=== PATIENT | female | born 1985 | race American Indian/Alaskan Native ===

== ENCOUNTER 2017-10-11 12:56 | Emergency (ER) | payer SELFPAY ==
[2017-10-11] MEDS ORDERED: MORPHINE IV ONE (14:34)
[2017-10-11] MEDS ORDERED: ZOFRAN IV ONE (14:34)
--- NOTE | 2017-10-11 14:37 | Emergency Department Report ---
Blank Doc - Documentation Documentation: 32-year-old female with no past medical surgical history presents to Hospital with complaints of joint without pain 1 week. Pain is severe, rated 10/10 intensity, constant, worse with palpation. Pt in distress. IVF, morphine, zofran ordered labs pending ct a/p IV contrast ordered to be done if test neg. midlevel to follow
[2017-10-11] MEDS ORDERED: NACL 0.9% 1000 ML 1,000 ML IV ONE (14:38)
[2017-10-11] MEDS ORDERED: PEPCID IV ONE (14:38)
[2017-10-11 14:39] VITALS: BP 104/73
--- NOTE | 2017-10-11 15:23 | Emergency Department Report ---
ED Abdominal Pain HPI - General Chief Complaint: Abdominal Pain Stated Complaint: STOMACH PAIN Time Seen by Provider: 10/11/17 14:30 Source: patient Mode of arrival: Ambulatory Limitations: No Limitations - History of Present Illness Initial Comments: This is a 32-year-old female nontoxic, well nourished in appearance, no acute signs of distress presents to the ED with c/o of intermittent abdominal pain x1 week. Patient describes abdominal as cramping and aching diffuse with more to the right upper abdominal region. Patient also stated has associated nausea with vomiting. Patient stated last vomiting occurred last night with food contant. Patient denies any chest pain, shortness of breathe, fever, chills, headache, numbness, tingling, back pain. Patient denies any urinary symptoms. Denies any drug allergies. PMH includes DVT, PE, and HTN. MD Complaint: abdominal pain -: week(s) (1) Location: diffuse Radiation: none Migration to: no migration Severity: mild Severity scale (0 -10): 10 Quality: cramping, aching Consistency: intermittent Improves With: nothing Worsens With: nothing Associated Symptoms: nausea, vomiting. denies: diarrhea, fever, chills, constipation, dysuria, hematemesis, hematochezia, melena, hematuria, anorexia, syncope - Related Data Previous Rx's Medication Instructions Recorded Last Taken Type Hydrocortisone 1% [Hydrocortisone 1 applicatio TP TID #1 tube 07/03/14 Unknown Rx 1% CREAM] Ibuprofen [Motrin 800 MG tab] 800 mg PO TID PRN #21 tablet 07/03/14 Unknown Rx guaiFENesin [Adult Tussin Chest 5 ml PO TID #118 ml 07/03/14 Unknown Rx Congestion] Amoxicillin [Amoxicillin TAB] 875 mg PO BID #20 tablet 08/29/14 Unknown Rx Ibuprofen [Motrin 600 MG tab] 600 mg PO Q8H #20 bottle NS 08/29/14 Unknown Rx Ibuprofen [Motrin] 600 mg PO Q8H PRN #30 tablet 10/11/17 Unknown Rx Ondansetron [Zofran Odt] 4 mg PO Q8HR #20 tab.rapdis 10/11/17 Unknown Rx Allergies Allergy/AdvReac Type Severity Reaction Status Date / Time apple Allergy Unknown Verified 08/29/14 00:57 ED Review of Systems ROS: Stated complaint: STOMACH PAIN Other details as noted in HPI Constitutional: denies: chills, fever Eyes: denies: eye pain, eye discharge, vision change ENT: denies: ear pain, throat pain Respiratory: denies: cough, shortness of breath, wheezing Cardiovascular: denies: chest pain, palpitations Endocrine: no symptoms reported Gastrointestinal: abdominal pain, nausea, vomiting. denies: diarrhea, constipation Genitourinary: denies: urgency, dysuria, discharge Musculoskeletal: denies: back pain, joint swelling, arthralgia Skin: denies: rash, lesions Neurological: denies: headache, weakness, paresthesias Psychiatric: denies: anxiety, depression Hematological/Lymphatic: denies: easy bleeding, easy bruising ED Past Medical Hx - Past Medical History Hx Hypertension: Yes Hx CVA: No Hx Congestive Heart Failure: No Hx Deep Vein Thrombosis: Yes Hx Pulmonary Embolism: No Hx Renal Disease: Yes Hx Sickle Cell Disease: No Hx Arthritis: No Hx Seizures: No - Surgical History Hx Open Heart Surgery: No Hx Internal Defibrillator: No Hx Cholecystectomy: No - Social History Smoking Status: Current Every Day Smoker Substance Use Type: Alcohol, Marijuana - Medications Home Medications: Home Medications Medication Instructions Recorded Confirmed Last Taken Type Hydrocortisone 1% [Hydrocortisone 1 applicatio TP TID #1 tube 07/03/14 Unknown Rx 1% CREAM] Ibuprofen [Motrin 800 MG tab] 800 mg PO TID PRN #21 tablet 07/03/14 Unknown Rx guaiFENesin [Adult Tussin Chest 5 ml PO TID #118 ml 07/03/14 Unknown Rx Congestion] Amoxicillin [Amoxicillin TAB] 875 mg PO BID #20 tablet 08/29/14 Unknown Rx Ibuprofen [Motrin 600 MG tab] 600 mg PO Q8H #20 bottle NS 08/29/14 Unknown Rx Ibuprofen [Motrin] 600 mg PO Q8H PRN #30 tablet 10/11/17 Unknown Rx Ondansetron [Zofran Odt] 4 mg PO Q8HR #20 tab.rapdis 10/11/17 Unknown Rx ED Physical Exam - General Limitations: No Limitations General appearance: alert, in no apparent distress - Head Head exam: Present: atraumatic, normocephalic - Eye Eye exam: Present: normal appearance Pupils: Present: normal accommodation - ENT ENT exam: Present: normal exam, mucous membranes moist - Neck Neck exam: Present: normal inspection, full ROM. Absent: tenderness, meningismus, lymphadenopathy - Respiratory Respiratory exam: Present: normal lung sounds bilaterally. Absent: respiratory distress, wheezes, rales, rhonchi, stridor, chest wall tenderness, accessory muscle use, decreased breath sounds, prolonged expiratory - Cardiovascular Cardiovascular Exam: Present: regular rate, normal rhythm, normal heart sounds. Absent: bradycardia, tachycardia, irregular rhythm, systolic murmur, diastolic murmur, rubs, gallop - GI/Abdominal GI/Abdominal exam: Present: soft, tenderness (diffuse), normal bowel sounds. Absent: distended, guarding, rebound, rigid, diminished bowel sounds - Expanded GI/Abdominal Exam Expanded GI/Abdominal exam: Absent: psoas sign, obturator sign, heel tap sign, Cruz's sign, Rovsing's sign, tenderness at Mcburney's Point, ascites - Rectal Rectal exam: Present: deferred - Extremities Exam Extremities exam: Present: normal inspection, full ROM, normal capillary refill - Back Exam Back exam: Present: normal inspection, full ROM. Absent: tenderness, CVA tenderness (R), CVA tenderness (L), paraspinal tenderness, vertebral tenderness - Neurological Exam Neurological exam: Present: alert, oriented X3, normal gait - Psychiatric Psychiatric exam: Present: normal affect, normal mood - Skin Skin exam: Present: warm, dry, intact, normal color. Absent: rash ED Course Vital Signs 10/11/17 10/11/17 14:38 14:55 Temperature 99.1 F Pulse Rate 81 Respiratory 20 Rate Blood Pressure 104/73 [Left] O2 Sat by Pulse 98 100 Oximetry - Reevaluation(s) Reevaluation #1: 10/11/17 15:24 Patient is speaking in full sentences with no signs of distress noted. Reevaluation #2: 10/11/17 16:04 Patient is resting comfortably and stated that abdominal pain is subsiding and resolving. - Consultations Consultation #1: 10/11/17 15:24 Patient has been consulted with Dr. Luong about patient history, physical exam, and labs and examined and screened patient and agrees to ED plan of care. ED Medical Decision Making - Lab Data Result diagrams: 10/11/17 14:55 10/11/17 14:55 - Medical Decision Making This is a 32-year-old female that presents with abdominal pain, nausea/vomiting and hypokalemia. Patient stable was examined by me and Dr. Luong. There is slight abdominal tenderness. No rebound tenderness. Labs obtained. CT abdomen /pelvis with contrast obtained and dictated by the radiologist. Patient received 1L of normal saline and zofran which patient stated symptoms has resolved and subsided. A by mouth challenge of apple juice had been obtained and patient tolerated well with no nausea vomiting. Patient discharged with Zofran. Patient was instructed to increase hydration. Patient was referred to Follow-up with a primary care doctor in 3-5 days or if symptoms worsen and continue return to emergency room as soon as possible. At time of discharge, the patient does not seem toxic or ill in appearance. No acute signs of distress noted. Patient agrees to discharge treatment plan of care. No further questions noted by the patient. Critical care attestation.: If time is entered above; I have spent that time in minutes in the direct care of this critically ill patient, excluding procedure time. ED Disposition Clinical Impression: Right ovarian cyst Abdominal pain Qualifiers: Abdominal location: generalized Qualified Code(s): R10.84 - Generalized abdominal pain Nausea & vomiting Qualifiers: Vomiting type: unspecified Vomiting Intractability: non-intractable Qualified Code(s): R11.2 - Nausea with vomiting, unspecified Disposition: DC-01 TO HOME OR SELFCARE Is pt being admited?: No Does the pt Need Aspirin: No Condition: Stable Instructions: Ibuprofen (By mouth), Ondansetron (By mouth), Acute Abdominal Pain (ED), Abdominal Pain (ED) Additional Instructions: Follow-up with a primary careGYN doctor in 3-5 days or if symptoms worsen and continue return to emergency room as soon as possible. Prescriptions: Ibuprofen [Motrin] 600 mg PO Q8H PRN #30 tablet PRN Reason: Pain Ondansetron [Zofran Odt] 4 mg PO Q8HR #20 tab.rapdis Referrals: PRIMARY CARE, [Primary Care Provider] - 3-5 Days YURI LANG MD [Staff Physician] - 3-5 Days [facility] [Outside] - 3-5 Days [facility] [Outside] - 3-5 Days LATOYA MERCER MD [Staff Physician] - 3-5 Days Forms: Work/School Release Form(ED)
[2017-10-11 15:28] LABS: Basophils % (Auto) 0.2 % (0.0-1.8); Eosinophils % (Auto) 0.1 % (0.0-4.3); Hematocrit 34.9 % (30.3-42.9); Lymphocytes # (Auto) 1.1 K/mm3 (1.2-5.4); Lymphocytes % (Auto) 10.8 % (13.4-35.0); Mean Corpuscular HGB Conc 35 % (30-34); Mean Corpuscular Hemoglobin 29 pg (28-32); Mean Corpuscular Volume 84 fl (79-97); Monocytes # (Auto) 0.8 K/mm3 (0.0-0.8); Monocytes % (Auto) 7.4 % (0.0-7.3); Platelet Count 376 K/mm3 (140-440); Red Blood Count 4.16 M/mm3 (3.65-5.03); Red Cell Distribution Width 12.6 % (13.2-15.2)
[2017-10-11 15:52] LABS: Alanine Aminotransferase 9 units/L (7-56); Albumin 3.7 g/dL (3.9-5); BUN/Creatinine Ratio 15; Blood Urea Nitrogen 6 mg/dL (7-17); Calcium 8.9 mg/dL (8.4-10.2); Hemolysis Index 5; Lipase 15 units/L (13-60)
[2017-10-11] MEDS ORDERED: K-DUR PO ONE (15:57)
--- NOTE | 2017-10-11 17:05 | Cat Scan Report ---
FINAL REPORT EXAM: CT ABDOMEN PELVIS W CON HISTORY: abd pain TECHNIQUE: Standard enhanced CT of the abdomen and pelvis. Coronal and sagittal reconstruction was also performed. Delayed imaging through the kidneys and bladder was obtained. Contrast: Intravenous contrast was given. PRIORS: None. FINDINGS: Within the abdomen, the liver demonstrates focal fatty deposition along the anterior falciform ligament. The spleen, pancreas, gallbladder, adrenal glands, and kidneys are unremarkable. No evidence for retroperitoneal or pelvic lymphadenopathy is seen. The bowel loops have normal caliber. No soft tissue mass, fluid collection, inflammatory change, or free air is seen within the abdomen or pelvis. The appendix is normal. Within the pelvis, the bladder is unremarkable. The uterus is normal. There is a large cystic focus in the right side of the pelvis measuring 6.9 x 4.6 x 5.5 cm (axial image 128, series 2, sagittal image 91). This closely approximates the uterus and is likely ovarian in etiology. No evidence for soft tissue mass or lymphadenopathy is seen in the pelvis. Images through the upper abdomen include the lung bases which are expanded and clear. Bony structures show no focal abnormalities and are intact. IMPRESSION: 1. no acute intra-abdominal process noted. 2. Large cystic focus in the right pelvis, probably related to the right ovary.
[2017-10-11 18:02] LABS: Bilirubin,Urine NEG (Negative); Blood,Urine MOD (Negative); Color,Urine Yellow (Yellow); Mucus,Urine FEW /HPF; Protein,Urine <15 mg/dL mg/dL (Negative); Urobilinogen,Urine < 2.0 mg/dL (<2.0)
== END 2017-10-11 18:34 | disposition home or self-care (01) ==
LOC: ED 12:56
DX: N83.201 Unspecified ovarian cyst, right side (principal); I10 Essential (primary) hypertension; F17.200 Nicotine dependence, unspecified, uncomplicated; F12.10 Cannabis abuse, uncomplicated; Z79.899 Other long term (current) drug therapy; Z91.018 Allergy to other foods; Z86.718 Personal history of other venous thrombosis and embolism
CPT/HCPCS: 36415; 74177; 80053; 81001; 83690; 84702; 85025; 96361; 96374; 96375; 99284; J2270; J2405; J7030; Q9967

== ENCOUNTER 2019-03-08 18:11 | Emergency (ER) | payer SELFPAY ==
--- NOTE | 2019-03-08 18:31 | Emergency Department Report ---
Blank Doc - Documentation Documentation: 34-year-old female that presents with chest pain and SOB. Stated that symptoms started after being told that being cheated on with AIDs female. This initial assessment/diagnostic orders/clinical plan/treatment(s) is/are subject to change based on patient's health status, clinical progression and re- assessment by fellow clinical providers in the ED. Further treatment and workup at subsequent clinical providers discretion. Patient/guardians urged not to elope from the ED as their condition may be serious if not clinically assessed and managed. Initial orders include: 1- Patient sent to [facility] for further evaluation and treatment 2- EKG 3- CXR
[2019-03-08 19:35] LABS: HCG Qualitative,Urine Negative (Negative)
[2019-03-08 19:36] LABS: Bacteria,Urine 1+ /HPF (Negative); Bilirubin,Urine NEG (Negative); Blood,Urine NEG (Negative); Color,Urine Colorless (Yellow); Protein,Urine <15 mg/dL mg/dL (Negative); RBC,Urine < 1.0 /HPF (0.0-6.0); Urobilinogen,Urine < 2.0 mg/dL (<2.0); WBC,Urine < 1.0 /HPF (0.0-6.0)
--- NOTE | 2019-03-08 20:03 | XRay Report ---
CHEST PA AND LATERAL VIEWS INDICATION: cp. COMPARISON: None. FINDINGS: Support devices: None. Heart: Within normal limits. Lungs/Pleura: No acute pulmonary or pleural findings. IMPRESSION: 1. No significant abnormality. Signer Name: Brooks Briones MD Signed: 03/08/2019 7:59 PM Workstation Name: [id number]
[2019-03-08] MEDS ORDERED: IBUPROFEN PO ONE (23:48)
--- NOTE | 2019-03-09 00:22 | Emergency Department Report ---
ED General Adult HPI - General Chief complaint: Chest Pain Stated complaint: RT ARM NUMBNESS/CHEST PAIN Time Seen by Provider: 03/08/19 18:29 Source: patient Mode of arrival: Ambulatory Limitations: No Limitations - History of Present Illness Initial comments: pt is a - Related Data Previous Rx's Medication Instructions Recorded Last Taken Type Hydrocortisone 1% [Hydrocortisone 1 applicatio TP TID #1 tube 07/03/14 Unknown Rx 1% CREAM] Ibuprofen [Motrin 800 MG tab] 800 mg PO TID PRN #21 tablet 07/03/14 Unknown Rx guaiFENesin [Adult Tussin Chest 5 ml PO TID #118 ml 07/03/14 Unknown Rx Congestion] Amoxicillin [Amoxicillin TAB] 875 mg PO BID #20 tablet 08/29/14 Unknown Rx Ibuprofen [Motrin 600 MG tab] 600 mg PO Q8H #20 bottle NS 08/29/14 Unknown Rx Ibuprofen [Motrin] 600 mg PO Q8H PRN #30 tablet 10/11/17 Unknown Rx Ondansetron [Zofran Odt] 4 mg PO Q8HR #20 tab.rapdis 10/11/17 Unknown Rx Acetaminophen/Codeine [Tylenol 1 tab PO Q6H PRN #12 tab 05/12/18 Unknown Rx /Codeine # 3 tab] Amoxicillin/K Clav Tab [Augmentin 1 tab PO Q12HR #20 tab 05/12/18 Unknown Rx 875 mg] Ibuprofen [Motrin] 600 mg PO Q8H PRN #30 tablet 05/12/18 Unknown Rx Allergies Allergy/AdvReac Type Severity Reaction Status Date / Time apple Allergy Unknown Verified 08/29/14 00:57 ED Review of Systems ROS: Stated complaint: RT ARM NUMBNESS/CHEST PAIN Other details as noted in HPI ED Past Medical Hx - Past Medical History Previous Medical History?: Yes Hx Hypertension: Yes Hx CVA: No Hx Congestive Heart Failure: No Hx Deep Vein Thrombosis: Yes Hx Pulmonary Embolism: No Hx Renal Disease: Yes Hx Sickle Cell Disease: No Hx Arthritis: No Hx Seizures: No - Surgical History Past Surgical History?: No Hx Open Heart Surgery: No Hx Internal Defibrillator: No Hx Cholecystectomy: No - Social History Smoking Status: Never Smoker Substance Use Type: None - Medications Home Medications: Home Medications Medication Instructions Recorded Confirmed Last Taken Type Hydrocortisone 1% [Hydrocortisone 1 applicatio TP TID #1 tube 07/03/14 Unknown Rx 1% CREAM] Ibuprofen [Motrin 800 MG tab] 800 mg PO TID PRN #21 tablet 07/03/14 Unknown Rx guaiFENesin [Adult Tussin Chest 5 ml PO TID #118 ml 07/03/14 Unknown Rx Congestion] Amoxicillin [Amoxicillin TAB] 875 mg PO BID #20 tablet 08/29/14 Unknown Rx Ibuprofen [Motrin 600 MG tab] 600 mg PO Q8H #20 bottle NS 08/29/14 Unknown Rx Ibuprofen [Motrin] 600 mg PO Q8H PRN #30 tablet 10/11/17 Unknown Rx Ondansetron [Zofran Odt] 4 mg PO Q8HR #20 tab.rapdis 10/11/17 Unknown Rx Acetaminophen/Codeine [Tylenol 1 tab PO Q6H PRN #12 tab 05/12/18 Unknown Rx /Codeine # 3 tab] Amoxicillin/K Clav Tab [Augmentin 1 tab PO Q12HR #20 tab 05/12/18 Unknown Rx 875 mg] Ibuprofen [Motrin] 600 mg PO Q8H PRN #30 tablet 05/12/18 Unknown Rx ED Physical Exam - General Limitations: No Limitations ED Course Vital Signs 03/08/19 18:18 Temperature 98.1 F Pulse Rate 120 H Respiratory 17 Rate Blood Pressure 133/105 O2 Sat by Pulse 100 Oximetry ED Medical Decision Making - Lab Data Result diagrams: 03/09/19 00:28 03/09/19 00:28 - EKG Data EKG shows normal: sinus rhythm, axis, intervals, QRS complexes, ST-T waves Rate: normal - EKG Data Interpretation: normal EKG (ekg interp by ed attending. ) - Radiology Data Radiology results: report reviewed, image reviewed Ordering Physician: BEKA TELLES NP Date of Service: 03/08/19 Procedure(s): XR chest routine 2V Accession Number(s): [id number] cc: BEKA TELLES NP Fluoro Time In Minutes: CHEST PA AND LATERAL VIEWS INDICATION: cp. COMPARISON: None. FINDINGS: Support devices: None. Heart: Within normal limits. Lungs/Pleura: No acute pulmonary or pleural findings. IMPRESSION: 1. No significant abnormality. Signer Name: Brooks Brioens MD Signed: 03/08/2019 7:59 PM Workstation Name: [id number] Transcribed By: PEDRO Dictated By: Broosk Briones MD Electronically Authenticated By: Brooks Briones MD Signed Date/Time: 03/08/191958 DD/ 58 TD/TT: Critical care attestation.: If time is entered above; I have spent that time in minutes in the direct care of this critically ill patient, excluding procedure time. ED Disposition Condition: Stable Referrals: PRIMARY CARE, [Primary Care Provider] - 3-5 Days
[2019-03-09 00:46] LABS: Hemoglobin 13.4 gm/dl (10.1-14.3); Mean Corpuscular HGB Conc 34 % (30-34); Mean Corpuscular Volume 85 fl (79-97); Platelet Count 244 K/mm3 (140-440); Red Blood Count 4.68 M/mm3 (3.65-5.03); Red Cell Distribution Width 13.9 % (13.2-15.2)
[2019-03-09 01:21] LABS: Alanine Aminotransferase 16 units/L (7-56); Albumin 4.5 g/dL (3.9-5); BUN/Creatinine Ratio 12; Blood Urea Nitrogen 7 mg/dL (7-17); Calcium 9.7 mg/dL (8.4-10.2); Hemolysis Index 9
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
[2019-03-09 02:40] VITALS: BP 109/68
== END 2019-03-09 02:40 | disposition home or self-care (01) ==
LOC: ED 18:11
DX: F43.9 Reaction to severe stress, unspecified (principal); I12.9 Hypertensive chronic kidney disease with stage 1 through stage 4 chronic kidney disease, or unspecified chronic kidney disease; N18.9 Chronic kidney disease, unspecified; R07.89 Other chest pain; M79.601 Pain in right arm; M54.5 Low back pain; F41.9 Anxiety disorder, unspecified; G89.29 Other chronic pain; Z91.018 Allergy to other foods; Z86.718 Personal history of other venous thrombosis and embolism; Z79.899 Other long term (current) drug therapy
CPT/HCPCS: 36415; 71046; 80053; 81001; 81025; 84484; 85027; 93005; 93010; 99284

== ENCOUNTER 2019-08-01 11:10 | Emergency (ER) | payer SELFPAY ==
[2019-08-01 12:59] VITALS: BP 117/90
[2019-08-01] MEDS ORDERED: predniSONE 50 MG TAB PO STA (16:11)
[2019-08-01] MEDS ORDERED: HYDROcodone/ACETAMINOPHEN 5-325 MG TAB PO STA (16:11)
--- NOTE | 2019-08-01 16:56 | Emergency Department Report ---
ED Back Pain/Injury HPI - General Chief Complaint: Back Pain/Injury Stated Complaint: BACK PAIN Time Seen by Provider: 08/01/19 14:13 Source: family Limitations: No Limitations - History of Present Illness Initial Comments: 34-year-old -[place] female with a past medical history of back pain off and on which started about 3 years ago due to a slip and fall while she was living in [place] and sustained blunt trauma to her lumbar area. States that she is been doing good for about the past year but a couple days ago she began to have dull throbbing pains which began to take on a sharp cast characteristic and began radiating down her right buttocks and thigh. This pain is grown progressively worsening with movement and palpation. She reports no nausea, no vomiting, no dysuria or hematuria, no saddle paresthesia, no loss of bowel or bladder. She is tried some [id number] medication but had to revert back to her previous back brace still with no improvement in symptoms. She reports no constipation or or diarrhea. MD Complaint: back pain Similar Symptoms Previously: Yes Severity: moderate Quality: burning, sharp, aching Consistency: constant Improves With: immobilization Worsens With: movement Context: unknown Associated Symptoms: difficulty walking. denies: confusion, weakness, incontinence, fever/chills, constipation, rash, seizure, shortness of breath - Related Data Previous Rx's Medication Instructions Recorded Last Taken Type Hydrocortisone 1% [Hydrocortisone 1 applicatio TP TID #1 tube 07/03/14 Unknown Rx 1% CREAM] Ibuprofen [Motrin 800 MG tab] 800 mg PO TID PRN #21 tablet 07/03/14 Unknown Rx guaiFENesin [Adult Tussin Chest 5 ml PO TID #118 ml 07/03/14 Unknown Rx Congestion] Amoxicillin [Amoxicillin TAB] 875 mg PO BID #20 tablet 08/29/14 Unknown Rx Ibuprofen [Motrin 600 MG tab] 600 mg PO Q8H #20 bottle NS 08/29/14 Unknown Rx Ibuprofen [Motrin] 600 mg PO Q8H PRN #30 tablet 10/11/17 Unknown Rx Ondansetron [Zofran Odt] 4 mg PO Q8HR #20 tab.rapdis 10/11/17 Unknown Rx Acetaminophen/Codeine [Tylenol 1 tab PO Q6H PRN #12 tab 05/12/18 Unknown Rx /Codeine # 3 tab] Amoxicillin/K Clav Tab [Augmentin 1 tab PO Q12HR #20 tab 05/12/18 Unknown Rx 875 mg] Ibuprofen [Motrin] 600 mg PO Q8H PRN #30 tablet 05/12/18 Unknown Rx Naproxen 500 mg PO BID PRN #30 tablet 03/09/19 Unknown Rx methOCARBAMOL [Robaxin TAB] 750 mg PO Q8H #21 tablet 08/01/19 Unknown Rx predniSONE [Deltasone] 20 mg PO QDAY #7 tab 08/01/19 Unknown Rx Allergies Allergy/AdvReac Type Severity Reaction Status Date / Time apple Allergy Unknown Verified 08/29/14 00:57 ED Review of Systems ROS: Stated complaint: BACK PAIN Other details as noted in HPI Comment: All other systems reviewed and negative ED Past Medical Hx - Past Medical History Previous Medical History?: Yes Hx Hypertension: Yes Hx CVA: No Hx Congestive Heart Failure: No Hx Deep Vein Thrombosis: Yes Hx Pulmonary Embolism: No Hx Renal Disease: Yes Hx Sickle Cell Disease: No Hx Arthritis: No Hx Seizures: No - Surgical History Past Surgical History?: No Hx Open Heart Surgery: No Hx Internal Defibrillator: No Hx Cholecystectomy: No - Social History Smoking Status: Never Smoker Substance Use Type: None - Medications Home Medications: Home Medications Medication Instructions Recorded Confirmed Last Taken Type Hydrocortisone 1% [Hydrocortisone 1 applicatio TP TID #1 tube 07/03/14 Unknown Rx 1% CREAM] Ibuprofen [Motrin 800 MG tab] 800 mg PO TID PRN #21 tablet 07/03/14 Unknown Rx guaiFENesin [Adult Tussin Chest 5 ml PO TID #118 ml 07/03/14 Unknown Rx Congestion] Amoxicillin [Amoxicillin TAB] 875 mg PO BID #20 tablet 08/29/14 Unknown Rx Ibuprofen [Motrin 600 MG tab] 600 mg PO Q8H #20 bottle NS 08/29/14 Unknown Rx Ibuprofen [Motrin] 600 mg PO Q8H PRN #30 tablet 10/11/17 Unknown Rx Ondansetron [Zofran Odt] 4 mg PO Q8HR #20 tab.rapdis 10/11/17 Unknown Rx Acetaminophen/Codeine [Tylenol 1 tab PO Q6H PRN #12 tab 05/12/18 Unknown Rx /Codeine # 3 tab] Amoxicillin/K Clav Tab [Augmentin 1 tab PO Q12HR #20 tab 05/12/18 Unknown Rx 875 mg] Ibuprofen [Motrin] 600 mg PO Q8H PRN #30 tablet 05/12/18 Unknown Rx Naproxen 500 mg PO BID PRN #30 tablet 03/09/19 Unknown Rx methOCARBAMOL [Robaxin TAB] 750 mg PO Q8H #21 tablet 08/01/19 Unknown Rx predniSONE [Deltasone] 20 mg PO QDAY #7 tab 08/01/19 Unknown Rx ED Physical Exam - General Limitations: No Limitations General appearance: alert, in no apparent distress - Head Head exam: Present: atraumatic, normocephalic - Eye Eye exam: Present: normal appearance, PERRL, EOMI Pupils: Present: normal accommodation - ENT ENT exam: Present: mucous membranes moist - Neck Neck exam: Present: normal inspection - Respiratory Respiratory exam: Present: normal lung sounds bilaterally. Absent: respiratory distress, wheezes, rales, chest wall tenderness, accessory muscle use - Cardiovascular Cardiovascular Exam: Present: regular rate, normal rhythm. Absent: systolic murmur, diastolic murmur, rubs, gallop - GI/Abdominal GI/Abdominal exam: Present: soft, normal bowel sounds. Absent: distended, tenderness, hyperactive bowel sounds, hypoactive bowel sounds, organomegaly, mass - Extremities Exam Extremities exam: Present: normal inspection - Back Exam Back exam: Present: normal inspection, full ROM, tenderness, paraspinal tenderness, other (Other tenderness to the right sacroiliac joint). Absent: CVA tenderness (R), CVA tenderness (L) - Neurological Exam Neurological exam: Present: alert, oriented X3, CN II-XII intact - Psychiatric Psychiatric exam: Present: normal affect, normal mood. Absent: anxious, flat affect - Skin Skin exam: Present: warm, dry, intact, normal color. Absent: rash ED Course Vital Signs 08/01/19 12:58 Temperature 98.5 F Pulse Rate 71 Respiratory 18 Rate Blood Pressure 117/90 O2 Sat by Pulse 98 Oximetry Critical care attestation.: If time is entered above; I have spent that time in minutes in the direct care of this critically ill patient, excluding procedure time. ED Disposition Clinical Impression: Lumbago with sciatica, right side Disposition: - TO HOME OR SELFCARE Is pt being admited?: No Does the pt Need Aspirin: No Condition: Stable Instructions: Lumbar Radiculopathy (ED), Arthralgia (ED), Back Pain (ED), Sacroiliitis (ED) Prescriptions: predniSONE [Deltasone] 20 mg PO QDAY #7 tab methOCARBAMOL [Robaxin TAB] 750 mg PO Q8H #21 tablet Referrals: ZENA MURILLO MD [Staff Physician] - 3-5 Days
== END 2019-08-01 17:05 | disposition home or self-care (01) ==
LOC: ED 11:10
DX: M54.41 Lumbago with sciatica, right side (principal); I10 Essential (primary) hypertension; Z86.718 Personal history of other venous thrombosis and embolism; Z79.01 Long term (current) use of anticoagulants; Z79.899 Other long term (current) drug therapy; Z91.018 Allergy to other foods
CPT/HCPCS: 99282; J7512